=== PATIENT | male | born 1990 | race Caucasian/White ===

== ENCOUNTER 2024-08-20 16:42 | Emergency (ER) | payer BC, SELFPAY ==
--- NOTE | ~2024-08-20 | XR_ITS ---
CLINICAL HISTORY: fever, cough 2 view chest x-ray Comparison: None Findings: The lungs are clear. Heart size is normal. No acute fracture. IMPRESSION: 1. No acute findings. This document has been electronically signed by: Corby Zamora MD on 08/20/2024 22:25:28
[2024-08-20 16:51] VITALS: BP 132/80; PULSE 106; RESP 18; TEMP 36.7; O2SAT 99; BMI 40.3
--- NOTE | 2024-08-20 16:53 | ED_ITS ---
HPI - General Adult General Chief complaint: General Medical Stated complaint: dog bite,fever, nausea,fatigue Time Seen by Provider: 08/20/24 21:53 History of Present Illness ED Provider: Estefania HEBERT narrative: The patient is a 33-year-old male. He describes himself is generally healthy. He is on no medications and has no known medical problems. He says that yesterday evening he went outside his house. A dog was going down the street. He greeted the dog and decided to try to read the dog's collar. When the patient did this the dog bit him on his left wrist. The dog then ran away. This occurred yesterday evening, approximately 24 hours before I spoke to the patient. The patient says that during the day today he also developed a cough and a runny nose and a sense of fever. He also had some nausea, vomiting, and diarrhea. The patient checked his temperature at home. Although he felt feverish he did not measure an actual fever. While in the emergency room however he developed a temperature of 101.4 degrees. Related Data Previous Rx's ?Medication ?Instructions ?Recorded amoxicillin 875 mg-potassium 1 tab PO BID 3 days #6 tabs 08/20/24 clavulanate 125 mg tablet Allergies Allergy/AdvReac Type Severity Reaction Status Date / Time No Known Allergies Allergy Verified 08/20/24 16:53 Review of Systems 2 Review of Systems: Yes all other systems are reviewed and are negative Physical Exam ED Vital Signs: Vital Signs - 24 hr 08/20/24 16:51 08/20/24 21:44 08/20/24 22:00 Temperature 98.1 F 99.4 F 101.4 F H Pulse Rate 106 H 107 H Respiratory Rate 18 18 Blood Pressure 132/80 159/65 H Pulse Oximetry 99 97 Oxygen Delivery Method Room Air Room Air 08/20/24 23:54 08/20/24 23:55 Temperature 99.8 F 99.8 F Pulse Rate 88 88 Respiratory Rate 16 16 Blood Pressure 146/83 H 146/83 H Pulse Oximetry 99 99 Oxygen Delivery Method Room Air Room Air BMI result Body Mass Index 40.3 Const Other: The patient is awake, alert, pleasant, cooperative. He does not appear in acute distress. HENMT Other: Face is symmetrical. Mucous membranes moist. Posterior pharynx is unremarkable. Eyes General: appearance normal, both eyes and all related structures Conjunctivae: conjunctivae normal EOM: EOMs intact bilaterally Neck Neck: Yes full ROM and Yes no lymphadenopathy Resp Effort & Inspection: normal respiratory effort Auscultation: clear to auscultation bilaterally Cardio Rate: regular rate Rhythm: regular rhythm Heart sounds: S1 normal heart sound present and S2 normal heart sound present GI Other: Abdomen is soft and nontender Skin Other: The patient has some small breaks in the skin of the left wrist consistent with a dog bite. No large injuries. No erythema. Neuro Other: The patient is awake and alert with a normal mental status. Cranial nerves are grossly intact. He moves his extremities normally and appropriately. He seems neurologically intact. He has normal strength and sensation in the left hand. Extrem Other: The patient has signs of a dog bite to the skin of the left wrist but none of these injuries seem particularly deep or large. The patient has intact function of the wrist and the fingers of the hand. Course Course Course Narrative: RME performed by Kay Morales PA-C. Patient is a 33 year old assigned male at presenting to the emergency department with a left forearm dog bite from 08/19/2024 and nausea, vomiting, and diarrhea. Patient states that he was bit by a dog last night and has since developing nausea, vomiting, and diarrhea. Patient states that he does not know what the dogs rabies status is. Patient states that his tetanus is up to date. Detailed physical exam and review of systems are deferred to the triage register nurse. Labs and swabs ordered. Patient placed back in the waiting room pending room availability and results. Medications Administered Discontinued Medications Generic Name Dose Route Start Last Admin Trade Name Alberto PRN Reason Stop Dose Admin Amoxicillin/Clavulanate Potassium 875 mg 08/20/24 22:46 08/20/24 23:31 Amoxicillin/Potassium Clav 875 Mg Tablet PO 08/20/24 22:47 875 mg ONCE ONE Administration Diphtheria/Tetanus/Acell Pertussis 0.5 ml 08/20/24 22:05 08/20/24 23:35 Diphth,Pertus(Acell),Tet Adult 0.5 Ml Syringe IM 08/20/24 22:06 0.5 ml .ONCE ONE Administration Ketorolac Tromethamine 30 mg 08/20/24 22:09 08/20/24 23:14 Ketorolac Tromethamine 30 Mg/Ml Vial IM 08/20/24 22:10 30 mg ONCE ONE Administration Rabies Immune Globulin 2,400 unit 08/20/24 22:05 08/20/24 23:35 Rabies Immune Globulin/Pf 900 Unit/3 Ml Vial IM 08/20/24 22:06 2,400 unit ONCE ONE Administration Rabies Vaccine 1 ml 08/20/24 22:05 08/20/24 23:32 Rabies Vaccine (Pcec)/Pf 1 Ml Vial IM 08/20/24 22:06 1 ml .ONCE ONE Administration Medical Decision Making Medical Decision Making MDM Narrative: The patient is a 33-year-old male who was bitten by an unknown dog approximately 24 hours ago on his left wrist. He is not showing any orthopedic complications of the dog bite. The hand is neurovascularly intact. From the patient's description of the interaction with the dog this does not sound like an unprovoked bite so I think rabies is unlikely. Nevertheless the dog is not available for evaluation and therefore I think that rabies prophylaxis is still prudent. Wound infection prophylaxis will be done with Augmentin. As what I believe is a separate issue the patient also had symptoms of a runny nose, cough, nausea, vomiting, and diarrhea. While in the emergency room he was noted to have a fever with a temperature of 101.4 degrees. I do not suspect that fever is related to the dog bite. There are no signs of infection at the left wrist. I suspect the patient has a viral illness. Chest x-ray is negative. Viral swab is negative. My overall impression is that this is probably some kind of a non differentiated viral illness that can be managed symptomatically at home. Therefore the patient will be discharged with a prescription for Augmentin for wound infection prophylaxis for the left wrist, the patient received a 1st dose of rabies vaccine and also the appropriate dose of rabies immune globulin, additional orders for the completion of the rabies vaccine series has been entered. These should be administered at the infusion center. The patient should follow up with his PCP if any questions or concerns. He should return to the emergency room if acutely worse. Lab Data 08/20/24 17:15 08/20/24 17:15 Labs: Lab Results 08/20/24 08/20/24 Range/Units 17:15 23:04 WBC 15.2 H (4.8-10.8) X10*3/uL RBC 5.74 (4.60-5.80) X10*6/uL Hgb 17.0 (14.0-18.0) g/dl Hct 49.1 (42.0-52.0) % MCV 85.5 (80.0-98.0) fL MCH 29.6 (27.0-33.0) pg MCHC 34.6 (31.0-36.0) g/dl RDW 12.2 (11.0-16.0) % Plt Count 344 (160-400) X10*3/uL MPV 9.0 L (9.4-12.4) fL Immature Gran % (Auto) 0.5 H (0.0-0.4) % Neut % (Auto) 89.3 H (45-73) % Lymph % (Auto) 4.7 L (20-40) % [place] % (Auto) 4.1 (2-11) % Eos % (Auto) 1.1 (0-4) % Baso % (Auto) 0.3 (0-2) % Lymph # (Auto) 0.7 L (1.2-4.9) X10*3/uL [place] # (Auto) 0.6 (0.1-1.2) X10*3/uL Eos # (Auto) 0.2 (0.0-0.4) X10*3/uL Baso # (Auto) 0.1 (0.0-0.2) X10*3/uL Abs Immat Gran (auto) 0.07 H (0.00-0.03) X10*3/uL Absolute Neuts (auto) 13.5 H (2.0-8.3) x10*3/uL Absolute Nucleated RBC 0.000 (0.0-0.012) X10*3/uL Nucleated RBC % (auto) 0.0 (0.0-0.2) /100WBC Sodium 138 (135-145) mmol/L Potassium 4.5 (3.3-5.1) mmol/L Chloride 108 (96-108) mmol/L Carbon Dioxide 23 (22-29) mmol/L Anion Gap 12 (12-20) BUN 12 (9-16) mg/dL Creatinine 0.82 (0.5-1.4) mg/dL Estim Creat Clear Calc 163.0 Estimated GFR > 60 Random Glucose 96 (60-115) mg/dL Calcium 9.6 (8.4-10.2) mg/dL Magnesium 1.9 (1.6-2.6) mg/dL Total Bilirubin 0.7 (0.0-1.0) mg/dL AST 25 (5-37) U/L ALT 45 H (0-40) U/L Alkaline Phosphatase 141 H (39-117) U/L C-Reactive Protein 0.98 H (< or = 0.50) mg/dL Total Protein 8.4 H (6.5-8.0) g/dL Albumin 4.8 (3.5-5.0) g/dL Respiratory Panel [place] See Note Adenovirus (Rapid PCR) Not Detected (Not Detect.) B.pert (TEM-PCR) Not Detected (Not Detect.) B.parapertussis DNA PCR Not Detected (Not Detect.) C. pneumoniae DNA (PCR) Not Detected (Not Detect.) Coronavirus OC43 (PCR) Not Detected (Not Detect.) Coronavirus HKU1 (PCR) Not Detected (Not Detect.) Coronavirus 229E (PCR) Not Detected (Not Detect.) Coronavirus NL63 (PCR) Not Detected (Not Detect.) Human Metapneumovir PCR Not Detected (Not Detect.) Influenza A (RT-PCR) Not Detected (Not Detect.) Influenza Type A (PCR) NEGATIVE (Negative) Influenza B (RT-PCR) Not Detected (Not Detect.) Influenza Type B (PCR) NEGATIVE (Negative) M. pneumoniae (PCR) Not Detected (Not Detect.) Parainfluenza 1 (PCR) Not Detected (Not Detect.) Parainfluenza 2 (PCR) Not Detected (Not Detect.) Parainfluenza 3 (PCR) Not Detected (Not Detect.) Parainfluenza 4 (PCR) Not Detected (Not Detect.) RSV (PCR) Not Detected (Not Detect.) RSV RNA Qual (PCR) NEGATIVE (Negative) Entero/Rhino (PCR) Not Detected (Not Detect.) SARS-CoV-2 RNA (RT-PCR) NEGATIVE Not Detected (Negative) Discharge Plan Discharge Clinical Impression: Dog bite of arm, At increased risk for exposure to rabies virus, Viral respiratory infection Patient Disposition: Home, Self-Care Instructions: Animal Bite (ED), Viral Syndrome (ED) Additional Instructions: I think you have 2 issues today: One issue is your fever and respiratory symptoms. Your chest x-ray looks clear. I think you probably have an acute viral illness that I think will likely run its own course over the next few days. Please stay home for the next couple of days, drink lot of fluids and rest. You may use ibuprofen and acetaminophen as needed for discomfort or fevers. Your other issue is the dog bite. You has been started on the antibiotic amoxicillin/clavulanate (often called Augmentin) to help ensure you do not develop an infection following the dog bite. Additionally, since we do not know anything about the dog that bit you, you has been started on a course of rabies prevention. In addition to the medications you received here tonight rabies protection protocol requires you to get 3 additional treatments of rabies vaccine. We have a protocol that allows you to receive these vaccines at the [facility] infusion center. These vaccines should be given on August 23, August 28, and September 03. Rabies follow up with the [facility]: Upon discharge from the ED today, you will be contacted by the Infusion Center to schedule your follow up Rabies vaccines. You will need a total of 3 more injections. If for some reason you do not receive a call, please call the Infusion Center directly at [phone]. Follow up with your primary care provider after completion of the vaccine to have a titer drawn to ensure the vaccines effectiveness. Please call your regular doctor for any additional advice as needed. Return to the emergency room if you feel significantly worse. Prescriptions: New amoxicillin-pot clavulanate 875-125 mg tablet 1 tab PO BID 3 Days Qty: 6 0RF Referrals: Elizabeth Kowalski MD [Primary Care Provider] - (Viral respiratory illness, dog bite, rabies prophylaxis) Interventions: ED Discharge Assessment Last Done: 08/20/24 23:55 Discharge Date/Time: 08/20/24 23:56 Print Language: French
[2024-08-20 17:20] LABS: MANUAL DIFF FLAG NO
[2024-08-20 17:36] LABS: Alanine Aminotransferase 45 U/L (0-40); Albumin Level 4.8 g/dL (3.5-5.0); Alkaline Phosphatase 141 U/L (39-117); Anion Gap 12 (12-20); Aspartate Amino Transferase 25 U/L (5-37); Basophils Absolute Auto 0.1 X10*3/uL (0.0-0.2); Basophils Percent Auto 0.3 % (0-2); Bilirubin Total 0.7 mg/dL (0.0-1.0); Blood Urea Nitrogen 12 mg/dL (9-16); Calcium 9.6 mg/dL (8.4-10.2); Carbon Dioxide 23 mmol/L (22-29); Chloride 108 mmol/L (96-108); Eosinophils Absolute Auto 0.2 X10*3/uL (0.0-0.4); Eosinophils Percent Auto 1.1 % (0-4); Estimated Glomerular Filt Rate > 60; Glucose Random 96 mg/dL (60-115); Hematocrit 49.1 % (42.0-52.0); Imm Gran Abs Auto 0.07 X10*3/uL (0.00-0.03); Imm Gran Pct Auto 0.5 % (0.0-0.4); Lymphocytes Absolute Auto 0.7 X10*3/uL (1.2-4.9); Lymphocytes Percent Auto 4.7 % (20-40); Magnesium 1.9 mg/dL (1.6-2.6); Mean Corpuscular HGB Conc 34.6 g/dl (31.0-36.0); Mean Corpuscular Hemoglobin 29.6 pg (27.0-33.0); Mean Corpuscular Volume 85.5 fL (80.0-98.0); Monocytes Absolute Auto 0.6 X10*3/uL (0.1-1.2); Monocytes Percent Auto 4.1 % (2-11); Neutrophils Absolute Auto 13.5 x10*3/uL (2.0-8.3); Neutrophils Percent Auto 89.3 % (45-73); Platelet Count 344 X10*3/uL (160-400); Potassium 4.5 mmol/L (3.3-5.1); Red Blood Count 5.74 X10*6/uL (4.60-5.80); Red Cell Distribution Width 12.2 % (11.0-16.0); Sodium 138 mmol/L (135-145); Total Protein 8.4 g/dL (6.5-8.0); White Blood Count 15.2 X10*3/uL (4.8-10.8)
[2024-08-20 18:05] LABS: Influenza A PCR NEGATIVE (Negative); Influenza B PCR NEGATIVE (Negative); Resp Syncy Virus RNA Qual PCR NEGATIVE (Negative); SARS COV2 PCR INHOUSE NEGATIVE (Negative)
[2024-08-20 21:44] VITALS: BP 159/65; PULSE 107; RESP 18; TEMP 37.4; O2SAT 97
[2024-08-20 22:00] VITALS: TEMP 38.6
[2024-08-20 22:17] LABS: C Reactive Protein 0.98 mg/dL (< or = 0.50)
[2024-08-20] MEDS: Ketorolac Tromethamine 30 MG/ML VIAL IM (23:14)
[2024-08-20] MEDS: Amoxicillin/Potassium Clav 875 MG TABLET PO (23:31)
[2024-08-20] MEDS: Rabies Vaccine (PCEC)/PF 1 ML VIAL IM (23:32)
[2024-08-20] MEDS: Diphth,Pertus(ACell),Tet Adult 0.5 ML SYRINGE IM (23:35)
[2024-08-20] MEDS: Rabies Immune Globulin/PF 900 UNIT/3 ML VIAL 2400 UNIT IM (23:35)
[2024-08-20 23:54] VITALS: BP 146/83; PULSE 88; RESP 16; TEMP 37.7; O2SAT 99
[2024-08-20 23:55] VITALS: BP 146/83; PULSE 88; RESP 16; TEMP 37.7; O2SAT 99
[2024-08-21 11:46] LABS: Adenovirus PCR Not Detected (Not Detect.); Bordetella parapertussis PCR Not Detected (Not Detect.); Bordetella pertussis PCR Not Detected (Not Detect.); Chlamydia pneumoniae PCR Not Detected (Not Detect.); Coronavirus 229E PCR Not Detected (Not Detect.); Coronavirus HKU1 PCR Not Detected (Not Detect.); Coronavirus NL63 PCR Not Detected (Not Detect.); Coronavirus OC43 PCR Not Detected (Not Detect.); Human metapneumovirus PCR Not Detected (Not Detect.); Influenza A PCR Not Detected (Not Detect.); Influenza B PCR Not Detected (Not Detect.); Mycoplasma pneumoniae PCR Not Detected (Not Detect.); Parainfluenza 1 PCR Not Detected (Not Detect.); Parainfluenza 2 PCR Not Detected (Not Detect.); Parainfluenza 3 PCR Not Detected (Not Detect.); Parainfluenza 4 PCR Not Detected (Not Detect.); RSV PCR Not Detected (Not Detect.); Rhino/Enterovirus PCR Not Detected (Not Detect.)
[2024-08-21 11:47] LABS: SARS-CoV-2 PCR Not Detected (Not Detect.)
== END 2024-08-20 23:56 | disposition home or self-care (01) ==
PROVIDERS: Physician Assistant Medical; Emergency Provider Emergency Medicine; PCP Internal Medicine
DX: S61.552A Open bite of left wrist, initial encounter (principal); W54.0XXA Bitten by dog, initial encounter; R05.9 Cough, unspecified; R50.9 Fever, unspecified; Z03.818 Encounter for observation for suspected exposure to other biological agents ruled out; Y93.89 Activity, other specified; Y92.017 Garden or yard in single-family (private) house as the place of occurrence of the external cause; Y99.9 Unspecified external cause status; Z20.3 Contact with and (suspected) exposure to rabies; Z23 Encounter for immunization
CPT/HCPCS: 0241U; 71046; 80053; 83735; 85025; 86140; 87633; 90375; 90471; 90675; 90715; 96372; 99284; J1885

== ENCOUNTER → 2024-08-20 22:01 | Outpatient (BNV) | payer BC, SELFPAY | PROVIDERS: Emergency Provider Emergency Medicine; PCP Internal Medicine; Visit Provider Student in an Organized Health Care Education/Training Program | DX: R05.9 Cough, unspecified (principal); R50.9 Fever, unspecified | CPT/HCPCS: 71046 ==